=== PATIENT | male | born 1990 | race African-American/Black ===

== ENCOUNTER 2021-02-04 22:17 | Emergency (ER) | payer OTHER ==
[~2021-02-04] VITALS: Ht 172.7 cm; Wt 86.2 kg
[2021-02-04] MEDS ORDERED: VIBRAMYCIN 100100 MG PO (22:47)
[2021-02-04 22:53] LABS: URINE BILIRUBIN NEGATIVE (Negative); URINE BLOOD NEGATIVE (Negative); URINE CLARITY CLEAR; URINE COLOR YELLOW; URINE GLUCOSE-RANDOM NEGATIVE (Negative); URINE KETONES NEGATIVE (Negative); URINE LEUKOCYTES-REFLEX NEGATIVE (Negative); URINE NITRITE-REFLEX NEGATIVE (Negative); URINE PROTEIN NEGATIVE (Negative); URINE UROBILINOGEN 0.2 E.U./dl (0.2-1.0)
[2021-02-04 22:55] VITALS: BP 141/70
== END 2021-02-04 22:55 | disposition home or self-care (01) ==
LOC: M.ERS 22:17
PROVIDERS: Personal Emergency Response Attendant
DX: R36.9 Urethral discharge, unspecified (principal)